=== PATIENT | male | born 1995 | race Caucasian/White ===

== ENCOUNTER 2017-02-17 19:08 | Emergency (ER) | payer OTHER ==
[~2017-02-17] VITALS: Ht 180.3 cm; Wt 95.3 kg
[~2017-02-17 19:08] MED LIST: FLEXERIL10 MG PO; KEFLEX500 MG PO; MOTRIN400 MG PO; OCEAN NS; OMEPRAZOLE20 MG PO; ULTRAM50 MG PO; ZITHROMAX Z PA250 MG PO; ZOFRAN4 MG PO
[2017-02-17 19:38] LABS: HEMATOCRIT 46.8 % (42.0-52.0); HEMOGLOBIN 16.4 g/dl (14.0-18.0); MEAN CELL VOLUME 86.2 fl (80.0-94.0); MEAN CORPUSCULAR HGB 30.2 pg (27.0-31.0); MEAN PLATELET VOLUME 11.9 fl (9.6-12.3); PLATELET COUNT AUTOMATED 182 10*3/uL (130-400); RED BLOOD COUNT 5.43 10*6/uL (4.50-5.90); RED CELL DISTRI WIDTH 12.3 % (0-14.5); WHITE BLOOD COUNT 13.6 10*3/uL (4.8-10.8)
[2017-02-17 19:58] LABS: ALBUMIN 4.5 gm/dl (3.1-4.5); ALKALINE PHOSPHATASE 71 U/L (45-117); BILIRUBIN, TOTAL 1.6 mg/dl (0.2-1.0); BUN 16 mg/dl (7-24); C-REACTIVE PROTEIN 1.23 MG/DL (0-0.3); CARBON DIOXIDE 25 mmol/L (21-32); CHLORIDE 105 mmol/L (98-107); EST GLOM FILT AFRICAN AMERICAN > 60 ml/min; GLUCOSE 117 mg/dL (65-99); POTASSIUM 3.8 mmol/L (3.5-5.1); SGOT/AST 12 IU/L (3-35); SGPT/ALT 14 U/L (12-78); SODIUM 143 mmol/L (136-145); TOTAL PROTEIN 7.8 gm/dL (6.4-8.2)
[2017-02-17 20:00] LABS: LYMPHOCYTE # 0.4 10*3/uL (1.3-4.4); MONOCYTE # 0.8 10*3/uL (0.1-1.0); NEUTROPHIL # 12.4 10*3/uL (2.3-7.9); NEUTROPHILS 91 % (47-73); TOTAL CELLS COUNTED 100 #CELLS
[2017-02-17 20:01] LABS: PLATELET SUFFICIENCY NORMAL (NORMAL)
[2017-02-17 20:41] VITALS: BP 116/84
[2017-02-17 21:14] LABS: BILIRUBIN 1+ (NEGATIVE); BLOOD NEGATIVE (NEGATIVE); CLARITY CLEAR (CLEAR); COLOR YELLOW (YELLOW); GLUCOSE NEGATIVE (NEGATIVE); KETONE 1+ (NEGATIVE); LEUKO ESTERASE NEGATIVE (NEGATIVE); NITRITE NEGATIVE (NEGATIVE); PH 6.5 (5.0-9.0); PROTEIN 2+ (NEGATIVE); SPECIFIC GRAVITY 1.015 (1.005-1.030)
[2017-02-17 21:22] LABS: BACTERIA TRACE; MUCOUS 3+
[2017-02-17 21:23] LABS: URINE REFLEX COMMENT NO (NO); WBC 0-2 wbc/hpf (0-5)
[2017-02-17] MEDS ORDERED: ZOFRAN ODT4 MG SL (22:39)
== END 2017-02-17 23:20 | disposition home or self-care (01) ==
LOC: ED 19:08
PROVIDERS: Physician Assistant
DX: R10.31 Right lower quadrant pain (principal); R11.2 Nausea with vomiting, unspecified; F17.200 Nicotine dependence, unspecified, uncomplicated

== ENCOUNTER 2018-03-12 00:45 | Emergency (ER) | payer OTHER ==
[~2018-03-12] VITALS: Ht 172.7 cm; Wt 90.7 kg
[~2018-03-12 00:45] MED LIST changes: +ZOFRAN ODT4 MG SL
[2018-03-12] MEDS ORDERED: PENICILLIN VK500 MG PO (00:50)
[2018-03-12 00:52] VITALS: BP 132/70
[2018-03-12] MEDS ORDERED: CLINDAMYCIN HC300 MG PO (01:12)
[2018-03-12] MEDS ORDERED: Motrin,Rufen800 MG PO (01:12)
== END 2018-03-12 02:27 | disposition home or self-care (01) ==
LOC: ED 00:45
DX: K04.01 Reversible pulpitis (principal); K02.9 Dental caries, unspecified

== ENCOUNTER 2018-03-17 18:32 | Emergency (ER) | payer OTHER ==
[~2018-03-17] VITALS: Ht 175.2 cm; Wt 88.5 kg
[~2018-03-17 18:32] MED LIST changes: +CLINDAMYCIN HC300 MG PO; +Motrin,Rufen800 MG PO; +PENICILLIN VK500 MG PO
[2018-03-17 18:33] VITALS: BP 125/65
[2018-03-17] MEDS ORDERED: Motrin,Rufen800 MG PO (20:10)
== END 2018-03-17 20:26 | disposition home or self-care (01) ==
LOC: ED 18:32
DX: S92.144A Nondisplaced dome fracture of right talus, initial encounter for closed fracture (principal); S93.401A Sprain of unspecified ligament of right ankle, initial encounter; F17.200 Nicotine dependence, unspecified, uncomplicated; W11.XXXA Fall on and from ladder, initial encounter; Y93.89 Activity, other specified; Y92.89 Other specified places as the place of occurrence of the external cause; Y99.8 Other external cause status

== ENCOUNTER 2019-03-28 11:22 | Emergency (ER) | payer SELFPAY ==
[~2019-03-28] VITALS: Ht 172.7 cm; Wt 99.8 kg
[~2019-03-28 11:22] MED LIST changes: +PRILOSEC20 M1 PO
[2019-03-28 12:02] LABS: BASO % 0.2 % (0.0-1.0); EOS % 0.1 % (1.0-4.0); HEMATOCRIT 43.8 % (42.0-52.0); HEMOGLOBIN 14.9 g/dl (14.0-18.0); LYMPH # 0.5 10*3/uL (1.3-4.4); MEAN CELL VOLUME 89.8 fl (80.0-94.0); MEAN CORPUSCULAR HGB 30.5 pg (27.0-31.0); MEAN PLATELET VOLUME 11.8 fl (9.6-12.3); MONO # 1.1 10*3/uL (0.1-1.0); MONO % 9.3 % (3.0-9.0); NEUT # 10.3 10*3/uL (2.3-7.9); NEUT % 86.1 % (47.0-73.0); PLATELET COUNT AUTOMATED 143 10*3/uL (130-400); RED BLOOD COUNT 4.88 10*6/uL (4.50-5.90); WHITE BLOOD COUNT 11.9 10*3/uL (4.8-10.8)
[2019-03-28 12:14] VITALS: BP 112/54
[2019-03-28 12:17] LABS: ALBUMIN 3.7 gm/dl (3.1-4.5); ALKALINE PHOSPHATASE 76 U/L (45-117); BUN 9 mg/dl (7-24); CHLORIDE 100 mmol/L (98-107); CREATININE 1.02 mg/dL (0.70-1.30); POTASSIUM 3.6 mmol/L (3.5-5.1); SGOT/AST 12 IU/L (3-35); SGPT/ALT 20 U/L (12-78); SODIUM 134 mmol/L (136-145); TOTAL PROTEIN 7.6 gm/dL (6.4-8.2)
[2019-03-28] MEDS ORDERED: AUGMENTIN 875875 MG PO (14:18)
[2019-03-28] MEDS ORDERED: PREDNISONE20 M1 PO (14:18)
== END 2019-03-28 14:39 | disposition home or self-care (01) ==
LOC: ED 11:22
PROVIDERS: Physician Assistant
DX: J02.0 Streptococcal pharyngitis (principal); R11.2 Nausea with vomiting, unspecified; R68.83 Chills (without fever)

== ENCOUNTER → 2019-05-05 | Day surgery (SDC) | payer OTHER ==
[~2019-05-05] VITALS: Ht 177.8 cm; Wt 104.3 kg
[~2019-05-05] MED LIST changes: +AUGMENTIN 875875 MG PO; +NORCO 5-325 TA1 EACH PO; +PENICILLIN-VK500 M1 PO; +PREDNISONE20 M1 PO
[2019-05-05 09:36] VITALS: BP 123/70
[2019-05-05 12:01] VITALS: BP 121/70
[2019-05-05 12:15] VITALS: BP 130/82
[2019-05-05 12:28] VITALS: BP 138/74
[2019-05-05 12:45] VITALS: BP 124/78
[2019-05-05 13:00] VITALS: BP 132/84
== END | disposition home or self-care (01) ==
LOC: SDC 04-27 13:15
DX: K02.9 Dental caries, unspecified (principal); F43.0 Acute stress reaction; Z79.899 Other long term (current) drug therapy; Z98.890 Other specified postprocedural states; Z83.3 Family history of diabetes mellitus

== ENCOUNTER → 2021-01-25 | Outpatient (CLI) | payer OTHER ==
[2021-01-25 09:10] LABS: HEMATOCRIT 44.2 % (42.0-52.0); MEAN CELL VOLUME 89.1 fl (80.0-94.0); MEAN CORPUSCULAR HGB 29.6 pg (27.0-31.0); MEAN CORPUSCULAR HGB CONC 33.3 g/dl (33.0-37.0); MEAN PLATELET VOLUME 12.2 fl (9.6-12.3); RED BLOOD COUNT 4.96 10*6/uL (4.50-5.90); RED CELL DISTRI WIDTH 12.8 % (0-14.5); WHITE BLOOD COUNT 8.2 10*3/uL (4.8-10.8)
[2021-01-25 09:38] LABS: ALBUMIN 3.9 gm/dl (3.1-4.5); ALKALINE PHOSPHATASE 76 U/L (45-117); BUN 9 mg/dl (7-24); CHLORIDE 107 mmol/L (98-107); CHOLESTEROL 149 mg/dL (<200); CREATININE 0.93 mg/dL (0.70-1.30); LDL CHOLESTEROL 99 mg/dL (9-159); SGOT/AST 13 IU/L (3-35); SGPT/ALT 26 U/L (12-78); SODIUM 140 mmol/L (136-145); TOTAL PROTEIN 7.4 gm/dL (6.4-8.2); TRIGLYCERIDES 94 mg/dl (<150)
== END | disposition home or self-care (01) ==
LOC: LAB 08:51
PROVIDERS: ATTEND Family Medicine
DX: K21.9 Gastro-esophageal reflux disease without esophagitis (principal); E78.00 Pure hypercholesterolemia, unspecified; R53.83 Other fatigue; K29.70 Gastritis, unspecified, without bleeding

== ENCOUNTER → 2021-01-31 | Outpatient (CLI) | payer OTHER | END | disposition home or self-care (01) | LOC: LAB 10:44 | PROVIDERS: ATTEND Family Medicine | DX: R73.9 Hyperglycemia, unspecified (principal) ==

== ENCOUNTER 2021-05-22 12:32 | Inpatient (IN) | payer OTHER ==
[~2021-05-22] VITALS: Ht 175.2 cm; Wt 120.2 kg
[2021-05-22 12:47] VITALS: BP 122/78
[2021-05-22 20:38] VITALS: BP 120/76
[2021-05-22 23:18] VITALS: BP 124/78
[2021-05-23 03:00] VITALS: BP 120/76
[2021-05-23 04:22] VITALS: BP 128/76
[2021-05-23 05:13] VITALS: BP 122/74
[2021-05-23 08:35] VITALS: BP 101/55
[2021-05-23 14:23] VITALS: BP 123/45
[2021-05-24 04:00] VITALS: BP 111/50
== END 2021-05-24 12:31 | disposition home or self-care (01) | DRG 342 ==
LOC: ED 12:32 → EDHOLD 20:48
PROVIDERS: ADMIT Internal Medicine; ATTEND Internal Medicine
DX: S92.001A Unspecified fracture of right calcaneus, initial encounter for closed fracture (principal); S93.401A Sprain of unspecified ligament of right ankle, initial encounter; S92.101A Unspecified fracture of right talus, initial encounter for closed fracture; M24.071 Loose body in right ankle; S92.002A Unspecified fracture of left calcaneus, initial encounter for closed fracture; Y93.89 Activity, other specified; Y92.89 Other specified places as the place of occurrence of the external cause; Y99.8 Other external cause status; W14.XXXA Fall from tree, initial encounter

== ENCOUNTER → 2022-08-06 | Outpatient (CLI) | payer OTHER ==
[2022-08-06 17:25] LABS: BASO # 0.1 10*3/uL (0.0-0.1); BASO % 0.8 % (0.0-1.0); EOS # 0.1 10*3/uL (0.0-0.4); EOS % 1.6 % (1.0-4.0); HEMATOCRIT 43.8 % (42.0-52.0); LYMPH # 1.9 10*3/uL (1.3-4.4); MEAN CELL VOLUME 88.1 fl (80.0-94.0); MEAN CORPUSCULAR HGB 29.8 pg (27.0-31.0); MEAN CORPUSCULAR HGB CONC 33.8 g/dl (33.0-37.0); MEAN PLATELET VOLUME 11.5 fl (9.6-12.3); MONO # 0.6 10*3/uL (0.1-1.0); MONO % 6.9 % (3.0-9.0); NEUT # 6.2 10*3/uL (2.3-7.9); NEUT % 69.4 % (47.0-73.0); PLATELET COUNT AUTOMATED 231 10*3/uL (130-400); RED BLOOD COUNT 4.97 10*6/uL (4.50-5.90); RED CELL DISTRI WIDTH 12.3 % (0-14.5)
[2022-08-06 17:39] LABS: ALKALINE PHOSPHATASE 64 U/L (46-116); BUN 8 mg/dl (9-23); CHLORIDE 103 mmol/L (98-107); CREATININE 0.94 mg/dL (0.70-1.30); POTASSIUM 3.6 mmol/L (3.4-5.1); SGPT/ALT 22 U/L (10-49); SODIUM 139 mmol/L (136-145); TOTAL PROTEIN 6.9 gm/dL (6.0-8.0)
== END | disposition home or self-care (01) ==
LOC: LAB 17:06
PROVIDERS: ATTEND Family Medicine
DX: T14.8XXA Other injury of unspecified body region, initial encounter (principal); W57.XXXA Bitten or stung by nonvenomous insect and other nonvenomous arthropods, initial encounter; Y93.89 Activity, other specified; Y92.89 Other specified places as the place of occurrence of the external cause; Y99.8 Other external cause status

== ENCOUNTER → 2022-11-15 | Outpatient (CLI) | payer OTHER ==
[2022-11-15 14:37] LABS: HEMATOCRIT 47.7 % (42.0-52.0); MEAN CELL VOLUME 89.5 fl (80.0-94.0); MEAN CORPUSCULAR HGB 29.8 pg (27.0-31.0); MEAN CORPUSCULAR HGB CONC 33.3 g/dl (33.0-37.0); MEAN PLATELET VOLUME 12.6 fl (9.6-12.3); RED BLOOD COUNT 5.33 10*6/uL (4.50-5.90); RED CELL DISTRI WIDTH 12.7 % (0-14.5); WHITE BLOOD COUNT 6.6 10*3/uL (4.8-10.8)
[2022-11-15 14:52] LABS: ALKALINE PHOSPHATASE 70 U/L (46-116); BUN 9 mg/dl (9-23); CHLORIDE 107 mmol/L (98-107); CHOLESTEROL 152 mg/dL (<200); LDL CHOLESTEROL 96 mg/dL (9-159); POTASSIUM 3.8 mmol/L (3.4-5.1); SGPT/ALT 35 U/L (10-49); TOTAL PROTEIN 7.6 gm/dL (6.0-8.0); TRIGLYCERIDES 106 mg/dl (<150)
[2022-11-15 14:55] LABS: VITAMIN D, 25-HYDROXY 32.5 ng/mL (30-100)
== END | disposition home or self-care (01) ==
LOC: LAB 11:28
PROVIDERS: ATTEND Family Medicine
DX: Z00.00 Encounter for general adult medical examination without abnormal findings (principal); E74.9 Disorder of carbohydrate metabolism, unspecified; E55.9 Vitamin D deficiency, unspecified; J02.9 Acute pharyngitis, unspecified; R53.83 Other fatigue; R10.9 Unspecified abdominal pain; R05.9 Cough, unspecified; R04.2 Hemoptysis; Z79.899 Other long term (current) drug therapy

== ENCOUNTER 2022-12-03 12:04 | Emergency (ER) | payer OTHER ==
[~2022-12-03] VITALS: Ht 175.2 cm; Wt 117.0 kg
[2022-12-03 12:20] VITALS: BP 124/63
[2022-12-03] MEDS ORDERED: TOBRADEX 0.1%-0.5 ML OPH (13:04)
== END 2022-12-03 13:22 | disposition home or self-care (01) ==
LOC: ED 12:04
DX: S01.112A Laceration without foreign body of left eyelid and periocular area, initial encounter (principal); Z98.890 Other specified postprocedural states; X58.XXXA Exposure to other specified factors, initial encounter; Y93.55 Activity, bike riding; Y92.410 Unspecified street and highway as the place of occurrence of the external cause; Y99.8 Other external cause status

== ENCOUNTER 2023-07-12 08:14 | Emergency (ER) | payer OTHER ==
[~2023-07-12] VITALS: Ht 175.2 cm; Wt 117.9 kg
[~2023-07-12 08:14] MED LIST changes: +TOBRADEX 0.1%-0.5 ML OPH
[2023-07-12 08:25] VITALS: BP 121/71
== END 2023-07-12 09:38 | disposition home or self-care (01) ==
LOC: ED 08:14
DX: S05.01XA Injury of conjunctiva and corneal abrasion without foreign body, right eye, initial encounter (principal); Z98.890 Other specified postprocedural states; W22.8XXA Striking against or struck by other objects, initial encounter; Y93.89 Activity, other specified; Y92.89 Other specified places as the place of occurrence of the external cause; Y99.8 Other external cause status

== ENCOUNTER 2024-02-15 06:06 | Emergency (ER) | payer OTHER ==
[~2024-02-15] VITALS: Ht 172.7 cm; Wt 112.0 kg
[2024-02-15 06:12] VITALS: BP 122/69
[2024-02-15] MEDS ORDERED: Acetaminophen/Hydrocodone 5 MG/325 MG TABLET PO ONE (06:15)
[2024-02-15] MEDS ORDERED: Ondansetron Hydrochloride 4 MG TAB SL ONE (06:15)
[2024-02-15] MEDS ORDERED: CLINDAMYCIN HCL 300 MG CAPSULE PO ONE (06:15)
[2024-02-15] MEDS ORDERED: PENICILLIN VK500 MG PO (06:16)
[2024-02-15] MEDS ORDERED: CLINDAMYCIN HC300 MG PO (06:17)
== END 2024-02-15 06:23 | disposition home or self-care (01) ==
LOC: ED 06:06
DX: K02.9 Dental caries, unspecified (principal); Z79.2 Long term (current) use of antibiotics

== ENCOUNTER 2024-03-11 08:39 | Emergency (ER) | payer OTHER ==
[~2024-03-11] VITALS: Ht 177.8 cm; Wt 108.9 kg
[2024-03-11 08:44] VITALS: BP 135/68
[2024-03-11] MEDS ORDERED: TYLENOL EXTRA500 MG PO (09:04)
[2024-03-11] MEDS ORDERED: IBUPROFEN400 MG PO (09:04)
[2024-03-11] MEDS ORDERED: CLINDAMYCIN HC300 MG PO (09:04)
== END 2024-03-11 09:13 | disposition home or self-care (01) ==
LOC: ED 08:39
DX: K02.9 Dental caries, unspecified (principal); Z98.890 Other specified postprocedural states

== ENCOUNTER 2024-05-16 20:34 | Emergency (ER) | payer OTHER ==
[~2024-05-16] VITALS: Wt 110.2 kg
[~2024-05-16 20:34] MED LIST changes: +IBUPROFEN400 MG PO; +TYLENOL EXTRA500 MG PO
[2024-05-16] MEDS ORDERED: Acetaminophen/Hydrocodone HP 10/325 PO ONE ×2 (21:20→22:35)
[2024-05-16 21:28] VITALS: BP 114/60
[2024-05-16] MEDS ORDERED: HYDROCODONE-AC1 EACH PO (22:34)
== END 2024-05-16 22:47 | disposition home or self-care (01) ==
LOC: ED 20:34
DX: S92.331A Displaced fracture of third metatarsal bone, right foot, initial encounter for closed fracture (principal); S92.341A Displaced fracture of fourth metatarsal bone, right foot, initial encounter for closed fracture; Z98.890 Other specified postprocedural states; V89.2XXA Person injured in unspecified motor-vehicle accident, traffic, initial encounter; Y93.55 Activity, bike riding; Y92.410 Unspecified street and highway as the place of occurrence of the external cause; Y99.8 Other external cause status

== ENCOUNTER 2024-06-05 12:50 | Emergency (ER) | payer OTHER ==
[~2024-06-05] VITALS: Ht 177.8 cm; Wt 108.8 kg
[~2024-06-05 12:50] MED LIST changes: +HYDROCODONE-AC1 EACH PO
[2024-06-05 13:01] VITALS: BP 144/80
[2024-06-05] MEDS ORDERED: DICLOFENAC SOD75 MG PO (13:02)
[2024-06-05] MEDS ORDERED: OXYCODONE HCL5 MG PO (13:03)
[2024-06-05] MEDS ORDERED: Lidocaine Hydrochloride 2% 10 ML AMP SC ONE (13:15)
[2024-06-05] MEDS ORDERED: Tdap Vaccine 0.5 ML SYR (Adult Vaccine) IM ONE (13:15)
[2024-06-05] MEDS ORDERED: Amoxicillin/Clavulanate Pota 875 MG TAB PO ONE (13:30)
[2024-06-05] MEDS ORDERED: AMOX-CLAV 875-1 EACH PO (13:31)
== END 2024-06-05 13:35 | disposition home or self-care (01) ==
LOC: ED 12:50
DX: S61.215A Laceration without foreign body of left ring finger without damage to nail, initial encounter (principal); Z98.890 Other specified postprocedural states; W54.0XXA Bitten by dog, initial encounter; Y93.89 Activity, other specified; Y92.89 Other specified places as the place of occurrence of the external cause; Y99.8 Other external cause status

== ENCOUNTER 2025-04-15 16:28 | Emergency (ER) | payer OTHER ==
[~2025-04-15] VITALS: Ht 177.8 cm; Wt 106.6 kg
[~2025-04-15 16:28] MED LIST changes: +AMOX-CLAV 875-1 EACH PO; +DICLOFENAC SOD75 MG PO; +OXYCODONE HCL5 MG PO
[2025-04-15 16:35] VITALS: BP 125/71
[2025-04-15] MEDS ORDERED: IBUPROFEN 800 MG TAB PO ONE (16:50)
[2025-04-15] MEDS ORDERED: IBU800 M1 PO (17:17)
== END 2025-04-15 17:25 | disposition home or self-care (01) ==
LOC: ED 16:28
DX: S63.502A Unspecified sprain of left wrist, initial encounter (principal); S63.92XA Sprain of unspecified part of left wrist and hand, initial encounter; Z79.899 Other long term (current) drug therapy; W22.8XXA Striking against or struck by other objects, initial encounter; Y93.89 Activity, other specified; Y92.89 Other specified places as the place of occurrence of the external cause; Y99.8 Other external cause status